=== PATIENT | female | born 1935 | race Caucasian/White ===

== ENCOUNTER 2017-01-22 08:40 | Emergency (ER) | payer BC ==
[2017-01-22 08:57] VITALS: BP 143/63
--- NOTE | 2017-01-22 18:29 | UC ---
Complaint Female HPI - HPI Summary HPI Summary: pt c/o dysuria, increased frequency, urgency since last night. denies f/c/s, n/v /abd pain, confusion or unsteady gait. - History Of Current Complaint Chief Complaint: UCGU Stated Complaint: URINARY COMPLAINT Time Seen by Provider: 01/22/17 09:12 Hx Obtained From: Patient Onset/Duration: Sudden Onset, Lasting Hours, Still Present, Worse Since - this am Timing: Constant Severity Initially: Moderate Severity Currently: Moderate Pain Intensity: 2 - with urination Pain Scale Used: 0-10 Numeric Character: Burning Aggravating Factor(s): Urination Alleviating Factor(s): Nothing Associated Signs And Symptoms: Negative: Fever, Back Pain, Nausea, Vomiting(# Of Episodes =) - Allergies/Home Medications Allergies/Adverse Reactions: Allergies Allergy/AdvReac Type Severity Reaction Status Date / Time Barbiturates Allergy Unknown Verified 01/22/17 08:49 Reaction Details Nitrofurantoin Allergy See Comment Verified 01/22/17 10:00 Home Medications: Home Medications Metoprolol Tartrate TAB* [Lopressor TAB*] 25 mg PO DAILY 01/22/17 [History Confirmed 01/22/17] Pregabalin CAP(*) [Lyrica CAP(*)] 100 mg PO BID 01/22/17 [History Confirmed 02/01] PMH/Surg Hx/FS Hx/Imm Hx Cardiovascular History: Hypertension - Surgical History Surgical History: None - Family History Known Family History: Positive: Cardiac Disease Negative: Hypertension, Diabetes - Social History Occupation: Retired Alcohol Use: None Substance Use Type: None Smoking Status (MU): Never Smoked Tobacco - Immunization History Most Recent Influenza Vaccination: NONE 2016 Most Recent Pneumonia Vaccination: UTD Review of Systems Constitutional: Negative Respiratory: Negative Cardiovascular: Negative Gastrointestinal: Negative Genitourinary: Dysuria, Frequency, Urgency Motor: Negative Neurovascular: Negative Musculoskeletal: Negative Neurological: Negative All Other Systems Reviewed And Are Negative: Yes Physical Exam Triage Information Reviewed: Yes Appearance: Well-Appearing, Well-Nourished Vital Signs: Initial Vital Signs Temp 98 F 01/22/17 08:50 Pulse 88 01/22/17 08:50 Resp 18 01/22/17 08:50 BP 143/63 01/22/17 08:50 Pulse Ox 97 01/22/17 08:50 Vital Signs Reviewed: Yes Eyes: Positive: Conjunctiva Clear. Negative: Discharge ENT: Positive: Hearing grossly normal. Negative: Muffled/hoarse voice Neck: Positive: Supple Respiratory: Positive: Lungs clear, Normal breath sounds, No respiratory distress, No accessory muscle use Cardiovascular: Positive: RRR, No Murmur Abdomen Description: Positive: Nontender, Soft. Negative: CVA Tenderness (R), CVA Tenderness (L), Distended, Guarding Bowel Sounds: Positive: Present Musculoskeletal Exam: Normal Neurological: Positive: Alert, Muscle Tone Normal Psychological: Positive: Age Appropriate Behavior Skin Exam: Normal Complaint Female Dx - Differential Dx/Diagnosis Differential Diagnosis/HQI/PQRI: Urinary Tract Infection Provider Diagnoses: uti, hematuria Discharge - Discharge Plan Condition: Stable Disposition: HOME Prescriptions: Ciprofloxacin TAB* [Cipro Tab*] 250 mg PO BID #6 tab Patient Education Materials: Urinary Tract Infection in Women (ED), Hematuria ( ED) Referrals: Non Staff,Doctor [Primary Care Provider] - If Needed (FOLLOW UP IN 2 DAYS IF NOT IMPROVING. OTHERWISE FOLLOW UP IN 2 WEEKS.) Additional Instructions: CIPROFLOXACIN: You have been given a new antibacterial agent, ciprofloxacin (Cipro). This medicine is not related to the penicillins, sulfas, cephalosporins, or tetracyclines. It is often given to patients who are allergic to these drugs. It has been chosen for you either because other drugs are not appropriate, or because of the nature of your problem. Cipro should not be taken with antacids, as these can decrease its effectiveness. It can be taken without regard to meals. CIPRO SHOULD NOT BE TAKEN BY CHILDREN, NURSING WOMEN, OR WOMEN. Although Cipro is usually well-tolerated, common side effects can include nausea and diarrhea. Contact your doctor if you experience any unusual symptoms while on this medication, such as joint pain or swelling, shortness of breath, wheezing, faintness, or hives. ANYTIME YOU TAKE AN ANTIBIOTIC, IT IS IMPORTANT TO REPLENISH THE BODY's SUPPLY OF "GOOD BACTERIA." YOU CAN GET GOOD BACTERIA FROM HIGH QUALITY CULTURED FOODS SUCH LOCAL YOGURT, SOUR KRAUT, TAMIA LORI, NATURALLY FERMENTED PICKLES AND PROBIOTIC DRINKS. YOU CAN ALSO GET GOOD BACTERIA FROM A PROBIOTIC SUPPLEMENT.
== END 2017-01-22 10:13 | disposition home or self-care (01) ==
LOC: UCCORT 08:40
DX: N39.0 Urinary tract infection, site not specified (principal); R31.9 Hematuria, unspecified
CPT/HCPCS: 81003; 87077; 87086; 87186; 99202; G0463

== ENCOUNTER 2017-07-17 18:10 | Observation (INO) | payer BC, MEDICARE ==
[2017-07-17] MEDS ORDERED: NS 0.9% 1000 ML* 2,000 ML IV ONE (18:52)
[2017-07-17] MEDS ORDERED: cefTRIAXone(*) 1 GM in NS 0.9% 50 ML* 50 ML IVPB ONE (18:52)
[2017-07-17] MEDS ORDERED: Azithromycin IV* 500 MG ADVAN VIAL IVPB ONE (18:52)
--- NOTE | 2017-07-17 19:32 | RAD ---
INDICATION: Slurred speech and fall COMPARISON: None TECHNIQUE: PA and lateral views of the chest were obtained. FINDINGS: The heart and mediastinum are normal in size and contour. Depicted more clearly on the lateral view chest x-ray there appears to be a density overlying the posterior mid level right lung measuring 7 x 8.4 cm in the lateral plane and approximately 4.6 cm transverse in the AP plane. There is density overlying the parenchyma most severely affecting the right upper lobe. Visualized bones are normal for the patient's age. There is no radiographic evidence of free air beneath the diaphragm IMPRESSION: 1. POSSIBLE LUNG MASS AT THE POSTERIOR ASPECT OF THE RIGHT LOWER LOBE 2. CHEST X-RAY FINDINGS ARE COMPATIBLE WITH PULMONARY EDEMA OR INTERSTITIAL LUNG DISEASE.
[2017-07-17 19:52] LABS: Urine Appearance Cloudy; Urine Blood 1+ (Negative); Urine Color Yellow; Urine Ketones Negative (Negative); Urine Protein Negative (Negative); Urine Specific Gravity 1.015 (1.010-1.030); Urine Urobilinogen Negative (Negative)
[2017-07-17] MEDS ORDERED: Morphine INJ* 2 MG/ML 1 ML SYRINGE (TWO MG - NEW SYRINGE VERSION) IV PRN (20:15)
[2017-07-17] MEDS ORDERED: Ondansetron INJ* 2 MG/ML VIAL IV PRN (20:15)
[2017-07-17] MEDS ORDERED: Acetaminophen TAB* 325 MG PO PRN (20:15)
[2017-07-17] MEDS ORDERED: Iodixanol* (CONTRAST) 320 MG/ML 100 ML SDV IV ONE (20:23)
[2017-07-17 20:24] LABS: ABS Basophils 0 10^3/ul (0-0.2); ABS Eosinophils 0 10^3/ul (0-0.6); ABS Lymphocytes 0.3 10^3/ul (1.0-4.8); ABS Monocytes 0.2 10^3/ul (0-0.8); ABS Neutrophils 4.1 10^3/ul (1.5-7.7); ABS Nucleated RBC 0 10^3/ul; Eosinophil % 0 % (0-6); Hematocrit 26 % (35-47); Lymphocyte % 6.8 % (25-47); Mean Corpuscular HGB Conc 35 g/dl (31-36); Mean Corpuscular Hemoglobin 38 pg (27-31); Mean Platelet Volume 10 um3 (7.4-10.4); Nucleated Red Blood Cells % 0.1; Platelet Count 123 10^3/ul (150-450); Red Blood Count 2.38 10^6/ul (4.0-5.4); Red Cell Distribution Width 15 % (10.5-15); White Blood Count 4.7 10^3/ul (3.5-10.8)
[2017-07-17 20:25] LABS: Mean Corpuscular Volume 108 fL (80-97)
[2017-07-17 20:53] LABS: Monocytes % 5 % (0-13)
[2017-07-17] MEDS ORDERED: Ibuprofen TAB* 600 MG PO PRN (21:17)
[2017-07-17] MEDS ORDERED: Ibuprofen TAB* 600 MG ONE (21:23)
--- NOTE | 2017-07-17 21:47 | RAD ---
INDICATION: Further characterize lung mass seen on same-day chest x-ray. COMPARISON: Same day chest x-ray TECHNIQUE: Axial source images of the chest were acquired after the injection of 80 mL of Visipaque 320 intravenous contrast from just above the lung apices to the base of the diaphragm. Coronal and sagittal reconstructed images were acquired. FINDINGS: Corresponding to images seen on the same day chest x-ray there is a right lower lobe pulmonary mass measuring 5 x 7 cm in the axial plane and 6.2 cm in the cephalocaudal projection (sagittal image 26). Elsewhere the lungs exhibit centrilobular emphysematous changes. There is increased parenchymal density along the peripheral margins of the lungs. The heart is normal in size. There is no evidence of pericardial effusion. There is no evidence of aortic aneurysm or dissection. There is a pretracheal lymph node at the level of the sanjuana measuring 1.1 x 1.3 cm in the axial plane no other definitely enlarged mediastinal or hilar lymph nodes. Multilevel degenerative changes of the thoracic spine includes loss of intervertebral disc height there are no suspicious destructive bone lesion seen. Limited views of the upper abdomen show no abnormalities. IMPRESSION: 1. Large right lower lobe pulmonary mass as described above. Potentially this could be an infectious or inflammatory lesion, but it should be considered neoplasm until proven otherwise. 2. Chronic-appearing pulmonary findings indicate interstitial lung disease.
[2017-07-17] MEDS ORDERED: cefTRIAXone(*) 1 GM in D5W 50 ML BAG* 50 ML IVPB SCH (22:30)
[2017-07-17] MEDS ORDERED: Azithromycin IV(*) 500 MG in NS 0.9% 250 ML* 250 ML IVPB SCH (23:00)
--- NOTE | 2017-07-18 00:01 | HP ---
CC: Dr. Graham * ADMISSION HISTORY AND PHYSICAL: DATE OF ADMISSION: 07/17/17 TIME OF MY EVALUATION: 7:30 p.m. PRIMARY CARE PROVIDER: Dr. Graham in [place], [place]. CHIEF COMPLAINT: Fall/weakness. HISTORY OF PRESENT ILLNESS: Ms. Kingsley is an 82-year-old generally healthy woman who presents to [facility] while the relatively acute onset of weakness and falls during this holiday vacation. Her family is visiting from out of the area. She has family who lives in [place], another family from [place], they are in town visiting and they have a vacation home in [place], [place]. While there, the patient was actively playing with her grandchildren. She was in her usual state of health and then started to feel increasingly weak. She was febrile in the emergency room to as high as 101.4, though she did not think she was this febrile out of the hospital. She was relatively hypoxic with oxygen levels in the low 90s, which promptly responded into the mid to high 90s on low levels of oxygen. A chest x-ray done showed an infiltrate to the right. She denied any chills. She did feel some chest discomfort on her right side. The patient is mildly diaphoretic, the main complaint is weakness and inability to ambulate as she normally does. Her family notes that until recently, she was skiing. She is a retired occupational therapist. She is a lifetime nonsmoker. She does not drink. She does not have any known pulmonary disease. PAST MEDICAL HISTORY: 1. Postherpetic neuralgia secondary to previous infection - now on Lyrica. 2. Hypertension. 3. Unexplained right foot drop for 20 years. MEDICATIONS: Outpatient medications: 1. Lopressor 25 mg by mouth daily. 2. Lyrica 100 mg by mouth twice daily. 3. Aleve b.i.d. p.r.n. ALLERGIES: Include BARBITURATES and NITROFURANTOIN. FAMILY HISTORY: Reviewed but not contributory in this 82-year-old woman, who presents with pulmonary infection and weakness. SOCIAL HISTORY: The patient is a retired occupational therapist. She is . Her , Bryce, is her surrogate decision maker. She is accompanied by two [id number], both named Rosemary. She is a lifetime nonsmoker and nondrinker. PHYSICAL EXAMINATION GENERAL APPEARANCE: Elderly woman, appears stated age, in no apparent distress at rest. She is breathing quickly, but in no distress. VITAL SIGNS: On admission, temperature triage 97.8 degrees Fahrenheit, recheck in her room over 101 degrees Fahrenheit (101.4 by MD evaluation), heart rate 110 , respirations 20, oxygen saturation 93% on room air with response to high 90s on 2 L, blood pressure 120s/50s. HEENT: Oropharynx is clear. Mucous membranes are moist. NECK: Supple, no elevated JVD. No lymphadenopathy appreciated. CHEST: Clear on the left. She has diminished breath sounds on the right at the base posteriorly. HEART: Tachycardic with no murmurs appreciated. ABDOMEN: Soft and nontender. EXTREMITIES: Warm and well perfused. Normal muscle bulk, but she has a right foot drop with some lower limb muscle atrophy that is normal/her baseline. ADMISSION DIAGNOSTIC STUDIES/LAB DATA: Sodium depressed at 128, potassium 3.8 , chloride 98, bicarb 25, BUN elevated at 44, creatinine elevated at 1.18, the BUN-to- creatinine ratio is elevated at 37.3, glucose 130 (also elevated), lactic acid 1.3, calcium 8.6, magnesium 1.8 (low). Total bilirubin 0.4, AST and ALT are 21 and 10 respectively, alk phos 54. Troponin 0.02. BNP elevated at 168. Albumin and total protein are 3.2 and 8.7, respectively. TSH 2.68. Urinalysis negative in all important respects. Chest x-ray done in the emergency room 1852 hours shows a possible lung mass at the posterior aspect of the right lower lobe and chest x-ray findings compatible with pulmonary edema or interstitial lung disease. The chest CT shows a large right lower lobe pulmonary mass as described in the body of the report, potentially it could be infectious versus inflammatory lesion, should be considered neoplasm until proven otherwise as well as chronic- appearing pulmonary findings and interstitial lung disease. IMPRESSION AND PLAN: Ms. Kingsley is an 82-year-old female with mild hypoxia, tachycardia, weakness, and with sudden onset over the past 24 hours necessitating inpatient admission. The patient has been dosed with IV antibiotics and will continue on IV ceftriaxone and azithromycin for the potentially infectious component of this. Alternatively, this likely represents a lung neoplasm and we will arrange for pulmonology evaluation for a potential bronchoscopy and bronchial washings versus other attempt to attain cytology and identification of the lesion. We will continue other medications including her Lopressor and Lyrica. 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 The patient is a full code at this time. The patient's surrogate decision maker is her , Bryce. TIME SPENT: Total time taken to admit Ms. Kingsley was 75 minutes, greater than half that time was spent at the bedside going over the history and physical examination [id number] with the patient. [id number]/[facility]PS #: [id number] MTDD
[2017-07-18] MEDS: Pregabalin CAP(*) 100 MG PO SCH ×2 (00:06→08:38)
[2017-07-18] MEDS: NS 0.9% 1000 ML* 1,000 ML IV SCH ×2 (00:06→06:05)
[2017-07-18] MEDS: Heparin VIAL(*) 5000 UNITS/ML VIAL (FIVE THOUSAND) SUBCUT SCH ×2 (00:07→05:56)
[2017-07-18] MEDS ORDERED: NS 0.9% 500 ML* 500 ML IV ONE (03:36)
[2017-07-18 06:37] LABS: ABS Basophils 0 10^3/ul (0-0.2); ABS Eosinophils 0 10^3/ul (0-0.6); ABS Lymphocytes 0.4 10^3/ul (1.0-4.8); ABS Monocytes 0.1 10^3/ul (0-0.8); ABS Neutrophils 1.7 10^3/ul (1.5-7.7); ABS Nucleated RBC 0 10^3/ul; Eosinophil % 0.2 % (0-6); Hematocrit 20 % (35-47); Hemoglobin 6.9 g/dl (12.0-16.0); Lymphocyte % 18.8 % (25-47); Mean Corpuscular HGB Conc 35 g/dl (31-36); Mean Corpuscular Hemoglobin 38 pg (27-31); Mean Platelet Volume 10 um3 (7.4-10.4); Nucleated Red Blood Cells % 0.2; Red Blood Count 1.82 10^6/ul (4.0-5.4); Red Cell Distribution Width 15 % (10.5-15); White Blood Count 2.2 10^3/ul (3.5-10.8)
[2017-07-18 06:39] LABS: Mean Corpuscular Volume 109 fL (80-97)
[2017-07-18 07:00] LABS: EGFR Non-African American 59.3 (>60)
[2017-07-18 07:07] LABS: Platelet Count 105 10^3/ul (150-450)
[2017-07-18] MEDS ORDERED: Metoprolol Tartrate TAB* 25 MG PO SCH (09:00)
[2017-07-18] MEDS ORDERED: Pregabalin CAP(*) 100 MG PO SCH (09:00)
[2017-07-18] MEDS ORDERED: Magnesium Sulfate 2 GM IV* 2 GM/50 ML BAG IVPB ONE (09:10)
[2017-07-18] MEDS: Potassium Chlor TAB* 20 MEQ TAB.ER PO SCH ×2 (10:29→11:31)
[2017-07-18 11:35] VITALS: BP 112/63
[2017-07-18] MEDS ORDERED: Azithromycin IV(*) 500 MG in D5W 250 ML BAG* 250 ML IVPB SCH (23:00)
--- NOTE | 2017-07-19 20:54 | DS ---
DISCHARGE SUMMARY: DATE OF ADMISSION: 07/17/17 DATE OF DISCHARGE: 07/18/17 ADMITTING PROVIDER: Beto Greer MD ATTENDING PHYSICIAN: Yaakov Saleh MD PRIMARY CARE PHYSICIAN: Dr. Graham. CHIEF COMPLAINT: Two falls; weakness. PRINCIPAL DIAGNOSIS: Community acquired pneumonia versus lung malignancy. HISTORY OF PRESENT ILLNESS: Mrs. Kingsley is an 82-year-old female, PMH of hypertension, right foot drop, post-herpetic neuralgia, otherwise very healthy, active skier, presents with 2 falls and generalized weakness. She resides in [place], but her family is visiting from out of town and they are all at their vacation home in [facility]. She reports falling as she was walking towards the bathroom. Denies any loss of consciousness or head trauma and then had a second fall when she was bending over to pick something up. She was transported to [facility] ED, was found to have a fever as high as 101.4, though denied any sensations of being febrile or having chills prior to admission. She was saturating in the low 90s on room air and the chest x-ray performed showed an infiltrate in the right lower lobe of the lung. She had some discomfort on the right side. She was admitted given her generalized weakness, inability to ambulate at her baseline, diaphoresis and imaging findings. She is a lifetime nonsmoker, has no known pulmonary disease. A CT of the chest was performed which demonstrated a right lower lobe pulmonary mass, differential included infectious versus inflammatory, but that should be considered neoplasm until proven otherwise along with chronic appearing emphysematous and interstitial markings. She was started on IV ceftriaxone and azithromycin. On presentation, she also was anemic with a hemoglobin 9.0/26 with macrocytosis of MCV of 108. She received IV fluids totalling 2.4 L during hospitalization and had some dilutional anemia on hospital day #2 with reductions in all cell counts and hemoglobin of 6.9, hematocrit of 20. The patient had some drop in blood pressure while asleep, initially presented 120s to 130s and fell to as low as 71/42, but mostly in the 90s/50s. On rechecking hospital day #2, was 112 /63 and the patient was insisting on discharge as she felt improved. She was counseled to seek medical attention if her symptoms returned and will be arranging close followup with her primary care physician along with referrals given to a other spatial scientist in the [facility] network near her [place] home with no evidence of a GI bleed and was having brown stools the day prior to admission. Given her macrocytosis, folate and B12 were added on to already drawn labs, B12 was 375, folate 17.7, within normal limits. Troponin was 0.02. The patient will need to have her anemia worked up and does attest that last summer she was described as anemic. No known prior labs available. DISCHARGE MEDICATIONS: Include; 1. Levaquin 750 mg p.o. daily for 6 tabs, total antibiotic course 7 days. 2. Lyrica 100 mg p.o. b.i.d. Her metoprolol was held until she can follow with her PCP given her relative hypotension and 2 falls, the dose of which had Lopressor 25 mg by mouth daily. DIET: Unrestricted. ACTIVITY: No restriction, but recommend moderation over next few days until followup. FOLLOWUP: Dr. Graham of [facility] system as well as referral to other spatial scientist, Dr. Juan Spicer of [facility]. TIME SPENT: Time spent on discharge, 35 minutes. [id number]/[facility] #: [id number] LEXUS
== END 2017-07-18 13:50 | disposition home or self-care (01) ==
LOC: ED 18:10 → MED 20:15 → INTOOBSV 20:15
PROVIDERS: ADMIT Internal Medicine; ATTEND Internal Medicine
DX: R53.1 Weakness (principal); R50.9 Fever, unspecified; R91.8 Other nonspecific abnormal finding of lung field; R07.9 Chest pain, unspecified; R29.6 Repeated falls; R00.0 Tachycardia, unspecified; Z79.899 Other long term (current) drug therapy; D64.9 Anemia, unspecified
CPT/HCPCS: 36415; 71020; 71260; 80048; 80053; 81003; 81015; 82607; 82746; 83605; 83735; 83880; 83921; 84443; 84484; 85025; 87040; 93005; 96365; 96372; 96375; 99284; A9270-GY; G0378; J0456; J0696; J1644; J3475; Q9967

== ENCOUNTER 2019-12-09 20:49 | Observation (INO) ==
[2019-12-09] MEDS ORDERED: Albuterol/Ipratropium NEB.SOL (2.5/0.5 MG) 3 ML NEB.SOLN INH ONE ×2 (21:26→22:44)
[2019-12-09 21:40] LABS: ABS Eosinophils 0.3 10^3/ul (0-0.6); ABS Lymphocytes 0.6 10^3/ul (1.0-4.8); ABS Monocytes 0.3 10^3/ul (0-0.8); Eosinophil % 5.8 %; Hematocrit 38 % (35-47); Hemoglobin 12.9 g/dL (12.0-16.0); Lymphocyte % 11.2 %; Mean Corpuscular HGB Conc 34 g/dL (31-36); Mean Corpuscular Hemoglobin 33 pg (27-31); Mean Corpuscular Volume 98 fL (80-97); Platelet Count 187 10^3/uL (150-450); Red Blood Count 3.91 10^6 /uL (3.70-4.87); Red Cell Distribution Width 17 % (10-15); White Blood Count 5.3 10^3/uL (3.5-10.8)
[2019-12-09 21:49] LABS: INR 1.11 (0.82-1.09)
[2019-12-09 21:57] LABS: Albumin 3.5 g/dL (3.2-5.2); Albumin/Globulin Ratio 0.9 (1-3); BUN/Creatinine Ratio 47.5 (8-20); C Reactive Protein 26.52 mg/L (<8.01); EGFR African American 184.4 (>60); EGFR Non-African American 152.4 (>60); Globulin 3.7 g/dL (2-4); Total Bilirubin 0.4 mg/dL (0.2-1.0); Total Protein 7.2 g/dL (6.4-8.9)
[2019-12-09 22:56] LABS: Urine Appearance Cloudy; Urine Bilirubin Negative (Negative); Urine Blood Negative (Negative); Urine Color Yellow; Urine Glucose Negative (Negative); Urine Ketones Trace (Negative); Urine Nitrite Negative (Negative); Urine Protein 1+(30 mg/dL) (Negative); Urine Specific Gravity 1.019 (1.010-1.030); Urine Urobilinogen Negative (Negative)
[2019-12-09 23:01] LABS: Urine Bacteria Absent (Absent); Urine Red Blood Cell 1+(3-5/hpf) (Absent); Urine Squamous Epithelial Cell Present (Absent); Urine White Blood Cell Trace(0-5/hpf) (Absent)
[2019-12-10] MEDS ORDERED: Piperacillin/Tazobac ADVAN(*) 3.375 GM in NS 0.9% 100 ml BAG 100 ML IVPB ONE (00:22)
[2019-12-10] MEDS ORDERED: Albuterol HFA INHALER 8 gm MDI INH PRN (00:55)
[2019-12-10] MEDS ORDERED: Senna TAB 8.6 mg TAB PO PRN (01:27)
[2019-12-10] MEDS: methylPREDNISolone SOD 40 mg/ml 1 ml VIAL IV SCH ×3 (02:46→21:51)
[2019-12-10] MEDS: Heparin 5000 UNITS/ML 1 mL VIAL SUBCUT SCH ×3 (05:44→21:51)
[2019-12-10] MEDS: Pregabalin 25 mg CAP (*) PO SCH ×2 (07:52→21:59)
[2019-12-10] MEDS ORDERED: Aspirin EC 81 mg TAB.EC (enteric coated) PO SCH (09:00)
[2019-12-10] MEDS: SPIRIVA Respimat (tiotropium) 2.5 mcg/inh Inhaler INH SCH (10:20)
[2019-12-10] MEDS ORDERED: Morphine 2 MG/ML SYRINGE IV PRN (11:55)
[2019-12-10] MEDS ORDERED: Morphine ORAL CONCENTRATE 5 MG/0.25 ML ORAL.SYRIN PO PRN (13:45)
[2019-12-10] MEDS ORDERED: LORazepam 2 mg VIAL 1 ml IV PUSH PRN (13:46)
[2019-12-10] MEDS ORDERED: Lorazepam PYXIS KEY PRN (13:46)
[2019-12-10] MEDS ORDERED: Phenol 1.4% Throat Spray 177 ml BTL MT PRN (17:35)
[2019-12-10] MEDS ORDERED: GuaiFENesin DM 100 mg/10 mg in 5 ML UDC PO PRN (17:35)
[2019-12-11] MEDS: methylPREDNISolone SOD 40 mg/ml 1 ml VIAL IV SCH (06:29)
[2019-12-11] MEDS: Heparin 5000 UNITS/ML 1 mL VIAL SUBCUT SCH ×3 (06:29→22:09)
[2019-12-11] MEDS: SPIRIVA Respimat (tiotropium) 2.5 mcg/inh Inhaler INH SCH ×2 (06:58→07:01)
[2019-12-11] MEDS: Pregabalin 25 mg CAP (*) PO SCH ×2 (10:28→22:09)
[2019-12-11] MEDS ORDERED: Morphine ORAL CONCENTRATE 5 MG/0.25 ML ORAL.SYRIN PO PRN (11:52)
[2019-12-12] MEDS: Heparin 5000 UNITS/ML 1 mL VIAL SUBCUT SCH (06:22)
[2019-12-12 07:48] VITALS: BP 134/63
[2019-12-12] MEDS: SPIRIVA Respimat (tiotropium) 2.5 mcg/inh Inhaler INH SCH (08:00)
[2019-12-12] MEDS: Pregabalin 25 mg CAP (*) PO SCH (09:19)
== END 2019-12-12 11:45 | disposition home or self-care (01) ==
LOC: ED 20:49 → MED 20:49
PROVIDERS: ADMIT Internal Medicine; ATTEND Internal Medicine